=== PATIENT | female | born 1945 | race Caucasian/White ===

== ENCOUNTER 2022-05-02 15:29 | Inpatient (IN) | payer MEDICARE, OTHER ==
[~2022-05-02] VITALS: Ht 167.6 cm; Wt 79.8 kg
[2022-05-02 15:41] VITALS: BP_SYST 145
[2022-05-02] MEDS ORDERED: ACETAMINOPHEN 325 MG TABLET PO ONE (16:00)
[2022-05-02] MEDS ORDERED: NACL 0.9% 1,000 ML IV ONE (16:00)
[2022-05-02] MEDS ORDERED: CLOP75TA32 PO (16:24)
[2022-05-02] MEDS ORDERED: METF-379 PO (16:24)
[2022-05-02] MEDS ORDERED: ATOR20TA64 PO (16:24)
[2022-05-02] MEDS ORDERED: LEVE100S (16:24)
[2022-05-02] MEDS ORDERED: DULO60CA65 PO (16:24)
[2022-05-02] MEDS ORDERED: DULO30CA52 PO (16:24)
[2022-05-02] MEDS ORDERED: ASPI-989 PO (16:24)
[2022-05-02] MEDS ORDERED: AMLO10TA88 PO (16:24)
[2022-05-02] MEDS ORDERED: SSNOVOLOG SUBCUT (16:24)
[2022-05-02] MEDS ORDERED: LOSA50TA28 PO (16:25)
[2022-05-02 16:33] LABS: BASOPHILS % (AUTO) 0.6 % (0.0-2.0); HEMATOCRIT 39.3 % (36-48); HEMOGLOBIN 13.1 g/dL (12.0-16.0); LYMPHOCYTES # (AUTO) 0.4 K/uL (1.0-5.5); LYMPHOCYTES % (AUTO) 7.1 % (20.5-51.5); MEAN CORPUSCULAR HEMOGLOBIN 28 pg (27-31); MEAN CORPUSCULAR HGB CONC 33 % (32-36); MEAN CORPUSCULAR VOLUME 84 fL (79.0-98.0); MONOCYTES # (AUTO) 0.6 K/uL (0.0-1.0); MONOCYTES % (AUTO) 9.5 % (1.7-9.3); NEUTROPHILS % (AUTO) 82.8 % (40.0-70.0); PLATELET COUNT (AUTO) 245 K/uL (130-430); RED BLOOD CELL COUNT(AUTO) 4.66 MIL/uL (4.2-6.2); WHITE BLOOD COUNT (AUTO) 6.1 K/uL (4.8-10.8)
[2022-05-02 16:45] LABS: PROTHROMBIN TIME 10.6 SECS (9.5-12.5)
[2022-05-02 16:56] LABS: ANION GAP 11 (5-15); CALCIUM 8.9 mg/dL (8.4-11.0); CHLORIDE 100 mmol/L (98-107); CREATININE 0.84 mg/dL (0.55-1.30); GLUCOSE 135 mg/dL (70-99); UREA NITROGEN, BLOOD 10 mg/dL (8-21)
[2022-05-02 17:03] LABS: ALANINE AMINOTRANSFERASE 29 U/L (12-78); ALBUMIN 3.1 g/dL (3.4-4.8); ASPARTATE AMINOTRANSFERASE 19 U/L (10-37); TOTAL BILIRUBIN 0.4 mg/dL (0.0-1.0)
[2022-05-02 17:06] LABS: BILIRUBIN,URINE NEGATIVE (NEGATIVE); BLOOD, URINE 1+ (NEGATIVE); CLARITY/URINE CLOUDY (CLEAR); COLOR,URINE YELLOW (YELLOW); GLUCOSE,URINE NEGATIVE (NEGATIVE); KETONES,URINE NEGATIVE (NEGATIVE); LEUKOCYTE ESTERASE ,URINE 3+ (NEGATIVE); NITRITE, URINE POSITIVE (NEGATIVE); PROTEIN URINE 1+ (NEGATIVE); UROBILINOGEN,URINE 0.2 (0.2-1.0)
[2022-05-02 17:16] LABS: BACTERIA,URINE MANY /HPF (None Seen); MUCUS,URINE 3+ /LPF (None Seen); RBC,URINE 0-3 /HPF (0-3); WBC,URINE 50-80 /HPF (0-3)
[2022-05-02] MEDS ORDERED: DEXAMETHASONE SOD PHOSPHATE 10 MG/ML VIAL IVP ONE (18:00)
[2022-05-02] MEDS ORDERED: cefTRIAXone 1 GM in D5W 50 ML IV ONE (18:00)
[2022-05-02] MEDS ORDERED: cefTRIAXone 1 GM VIAL ONE (18:58)
[2022-05-02 22:49] VITALS: BP_SYST 127
[2022-05-03 01:38] VITALS: BP_SYST 116
[2022-05-03 08:00] VITALS: BP_SYST 119
[2022-05-03] MEDS ORDERED: HYDROcodone/ACETAMIN 10-325 MG TAB PO PRN (08:30)
[2022-05-03] MEDS ORDERED: INSULIN REGULAR, HUMAN 10 UNITS/0.1 ML, 3 ML VIAL SUBCUT PRN (08:30)
[2022-05-03] MEDS ORDERED: NALOXONE HCL 0.4 MG/ML AMP (NARCAN) IVP PRN (08:30)
[2022-05-03] MEDS ORDERED: ACETAMINOPHEN 325 MG TABLET PO PRN (08:30)
[2022-05-03] MEDS ORDERED: HYDROcodone/ACETAMIN 5-325 MG TAB (NORCO/ VICODIN) PO PRN (08:30)
[2022-05-03] MEDS ORDERED: D5W 1,000 ML IV PRN (09:15)
[2022-05-03] MEDS ORDERED: DEXTROSE 50% JECT 50 ML DISP.SYRIN IVP PRN (09:15)
[2022-05-03] MEDS ORDERED: GLUCOSE (DEXTROSE) ORAL GEL -Adults PO PRN (09:15)
[2022-05-03 11:41] VITALS: BP_SYST 106
[2022-05-03] MEDS: DECADRON 4 MG TABLET PO SCH (14:20)
[2022-05-03] MEDS ORDERED: ONDANSETRON HCL 4 MG/2 ML VIAL IVP PRN (14:30)
[2022-05-03] MEDS ORDERED: LORazepam 2 MG/ML VIAL IVP PRN (14:30)
[2022-05-03] MEDS ORDERED: IPRATROPIUM BROM 0.5 MG/2.5 ML VIAL.NEB (ATROVENT) INH SCH (15:00)
[2022-05-03] MEDS ORDERED: ALBUTEROL SULFATE 0.083% 2.5 MG/3 ML VIAL.NEB INH SCH (15:00)
[2022-05-03] MEDS ORDERED: amLODIPine BESYLATE 10 MG TABLET PO ONE (15:00)
[2022-05-03] MEDS ORDERED: LOSARTAN POTASSIUM 50 MG TABLET (COZAAR) PO ONE (15:00)
[2022-05-03] MEDS ORDERED: CLOPIDOGREL BISULFATE 75 MG TABLET PO ONE (15:00)
[2022-05-03] MEDS: AZITHROMYCIN 500 MG in NS 250 ML IV SCH (16:00)
[2022-05-03 17:00] VITALS: BP_SYST 110
[2022-05-03] MEDS: cefTRIAXone 1 GM in D5W 50 ML IV SCH (17:39)
[2022-05-03] MEDS ORDERED: ALBUTEROL SULFATE 0.083% 2.5 MG/3 ML VIAL.NEB INH PRN (19:00)
[2022-05-03] MEDS ORDERED: IPRATROPIUM BROM 0.5 MG/2.5 ML VIAL.NEB (ATROVENT) INH PRN (19:00)
[2022-05-03 20:00] VITALS: BP_SYST 123
[2022-05-03] MEDS ORDERED: COMMUNICATION ORDER XX ONE (20:45)
[2022-05-03] MEDS: metFORMIN HCL 500 MG TABLET PO SCH (21:01)
[2022-05-03] MEDS: ATORVASTATIN 20 MG TABLET PO SCH (21:01)
[2022-05-03] MEDS: NORMAL SALINE 5 ML DISP.SYRIN IVF SCH (21:06)
[2022-05-03] MEDS: INSULIN REGULAR, HUMAN 100 UNITS/ML, 3 ML VIAL (humuLIN R) SUBCUT PRN (21:18)
[2022-05-03] MEDS: ENOXAPARIN SODIUM 80 MG/0.8 ML SYRINGE SUBCUT SCH (21:19)
[2022-05-03] MEDS ORDERED: NORMAL SALINE 5 ML DISP.SYRIN IVF SCH (22:00)
[2022-05-04] VITALS: BP_SYST 109
[2022-05-04] MEDS: ALBUTEROL MDI INHALATION 8 GM INH INH SCH ×6 (03:00→23:14)
[2022-05-04] MEDS: NORMAL SALINE 5 ML DISP.SYRIN IVF SCH ×3 (06:16→21:26)
[2022-05-04 07:53] VITALS: BP_SYST 137
[2022-05-04] MEDS: amLODIPine BESYLATE 10 MG TABLET PO SCH (08:57)
[2022-05-04] MEDS: CLOPIDOGREL BISULFATE 75 MG TABLET PO SCH (08:57)
[2022-05-04] MEDS: metFORMIN HCL 500 MG TABLET PO SCH ×2 (08:58→21:21)
[2022-05-04] MEDS: ASPIRIN 325 MG TABLET PO SCH (08:58)
[2022-05-04] MEDS: LOSARTAN POTASSIUM 50 MG TABLET (COZAAR) PO SCH (08:58)
[2022-05-04] MEDS: ENOXAPARIN SODIUM 80 MG/0.8 ML SYRINGE SUBCUT SCH ×2 (08:58→21:20)
[2022-05-04] MEDS ORDERED: ENOXAPARIN SODIUM 30 MG/0.3 ML SYRINGE SUBCUT SCH (09:00)
[2022-05-04 09:45] LABS: BASOPHILS % (AUTO) 0.3 % (0.0-2.0); HEMATOCRIT 42.2 % (36-48); HEMOGLOBIN 13.6 g/dL (12.0-16.0); LYMPHOCYTES # (AUTO) 1.2 K/uL (1.0-5.5); LYMPHOCYTES % (AUTO) 23.4 % (20.5-51.5); MEAN CORPUSCULAR HEMOGLOBIN 28 pg (27-31); MEAN CORPUSCULAR HGB CONC 32 % (32-36); MEAN CORPUSCULAR VOLUME 86 fL (79.0-98.0); MONOCYTES # (AUTO) 0.2 K/uL (0.0-1.0); MONOCYTES % (AUTO) 3.5 % (1.7-9.3); NEUTROPHILS # (AUTO) 3.7 K/uL (1.8-7.7); NEUTROPHILS % (AUTO) 72.8 % (40.0-70.0); PLATELET COUNT (AUTO) 258 K/uL (130-430); RED BLOOD CELL COUNT(AUTO) 4.89 MIL/uL (4.2-6.2)
[2022-05-04 10:15] LABS: ALANINE AMINOTRANSFERASE 33 U/L (12-78); ALBUMIN 3.1 g/dL (3.4-4.8); ANION GAP 10 (5-15); ASPARTATE AMINOTRANSFERASE 28 U/L (10-37); CALCIUM 8.8 mg/dL (8.4-11.0); CHLORIDE 104 mmol/L (98-107); CREATININE 0.74 mg/dL (0.55-1.30); GLUCOSE 143 mg/dL (70-99); PHOSPHORUS 3.3 mg/dL (2.7-4.5); TOTAL BILIRUBIN 0.2 mg/dL (0.0-1.0); UREA NITROGEN, BLOOD 12 mg/dL (8-21)
[2022-05-04] MEDS: DECADRON 4 MG TABLET PO SCH (12:38)
[2022-05-04 12:54] VITALS: BP_SYST 124
[2022-05-04] MEDS: cefTRIAXone 1 GM in D5W 50 ML IV SCH (14:20)
[2022-05-04] MEDS: AZITHROMYCIN 500 MG in NS 250 ML IV SCH (15:49)
[2022-05-04 16:34] VITALS: BP_SYST 127
[2022-05-04] MEDS ORDERED: POTASSIUM CHLORIDE 20 MEQ TAB.PRT.SR PO ONE (17:00)
[2022-05-04 20:00] VITALS: BP_SYST 105
[2022-05-04] MEDS: ATORVASTATIN 20 MG TABLET PO SCH (21:21)
[2022-05-04] MEDS: INSULIN REGULAR, HUMAN 100 UNITS/ML, 3 ML VIAL (humuLIN R) SUBCUT PRN (22:26)
[2022-05-05 00:29] VITALS: BP_SYST 111
[2022-05-05] MEDS: ALBUTEROL MDI INHALATION 8 GM INH INH SCH ×6 (03:11→22:47)
[2022-05-05] MEDS: NORMAL SALINE 5 ML DISP.SYRIN IVF SCH ×3 (06:23→21:35)
[2022-05-05 07:58] LABS: BASOPHILS % (AUTO) 0.2 % (0.0-2.0); HEMATOCRIT 41.1 % (36-48); HEMOGLOBIN 13.5 g/dL (12.0-16.0); LYMPHOCYTES # (AUTO) 1.2 K/uL (1.0-5.5); LYMPHOCYTES % (AUTO) 27.7 % (20.5-51.5); MEAN CORPUSCULAR HEMOGLOBIN 28 pg (27-31); MEAN CORPUSCULAR HGB CONC 33 % (32-36); MEAN CORPUSCULAR VOLUME 85 fL (79.0-98.0); MONOCYTES # (AUTO) 0.5 K/uL (0.0-1.0); NEUTROPHILS # (AUTO) 2.6 K/uL (1.8-7.7); NEUTROPHILS % (AUTO) 61.1 % (40.0-70.0); PLATELET COUNT (AUTO) 250 K/uL (130-430); RED BLOOD CELL COUNT(AUTO) 4.87 MIL/uL (4.2-6.2); RED CELL DISTRIBUTION WIDTH 14.9 % (9.0-15.0); WHITE BLOOD COUNT (AUTO) 4.3 K/uL (4.8-10.8)
[2022-05-05 08:05] VITALS: BP_SYST 135
[2022-05-05 08:13] LABS: ANION GAP 10 (5-15); C-REACTIVE PROTEIN QUANT 1.6 mg/dL (0-0.5); CALCIUM 8.8 mg/dL (8.4-11.0); CHLORIDE 106 mmol/L (98-107); CREATININE 0.86 mg/dL (0.55-1.30); GLUCOSE 106 mg/dL (70-99); UREA NITROGEN, BLOOD 14 mg/dL (8-21)
[2022-05-05] MEDS: LOSARTAN POTASSIUM 50 MG TABLET (COZAAR) PO SCH (09:12)
[2022-05-05] MEDS: metFORMIN HCL 500 MG TABLET PO SCH ×2 (09:12→20:21)
[2022-05-05] MEDS: ASPIRIN 325 MG TABLET PO SCH (09:12)
[2022-05-05] MEDS: amLODIPine BESYLATE 10 MG TABLET PO SCH (09:13)
[2022-05-05] MEDS: CLOPIDOGREL BISULFATE 75 MG TABLET PO SCH (09:13)
[2022-05-05] MEDS: ENOXAPARIN SODIUM 80 MG/0.8 ML SYRINGE SUBCUT SCH (09:13)
[2022-05-05 10:43] LABS: ERYTHROCYTE SEDIMENTATION RATE 54 MM/HR (0-20)
[2022-05-05 11:56] VITALS: BP_SYST 125
[2022-05-05] MEDS: DECADRON 4 MG TABLET PO SCH (12:50)
[2022-05-05] MEDS: AZITHROMYCIN 500 MG in NS 250 ML IV SCH (12:51)
[2022-05-05 16:26] VITALS: BP_SYST 121
[2022-05-05] MEDS: INSULIN REGULAR, HUMAN 100 UNITS/ML, 3 ML VIAL (humuLIN R) SUBCUT PRN ×2 (17:18→21:35)
[2022-05-05] MEDS: cefTRIAXone 1 GM in D5W 50 ML IV SCH (18:00)
[2022-05-05 20:00] VITALS: BP_SYST 134
[2022-05-05] MEDS: ATORVASTATIN 20 MG TABLET PO SCH (20:21)
[2022-05-06 01:15] VITALS: BP_SYST 118
[2022-05-06] MEDS: ALBUTEROL MDI INHALATION 8 GM INH INH SCH ×3 (02:39→11:20)
[2022-05-06] MEDS: NORMAL SALINE 5 ML DISP.SYRIN IVF SCH ×3 (06:04→21:17)
[2022-05-06 06:10] VITALS: BP_SYST 118
[2022-05-06 06:59] LABS: BASOPHILS % (AUTO) 0.2 % (0.0-2.0); HEMATOCRIT 36.1 % (36-48); LYMPHOCYTES # (AUTO) 1.7 K/uL (1.0-5.5); LYMPHOCYTES % (AUTO) 36.3 % (20.5-51.5); MEAN CORPUSCULAR HEMOGLOBIN 28 pg (27-31); MEAN CORPUSCULAR HGB CONC 33 % (32-36); MEAN CORPUSCULAR VOLUME 85 fL (79.0-98.0); MONOCYTES # (AUTO) 0.5 K/uL (0.0-1.0); MONOCYTES % (AUTO) 10.6 % (1.7-9.3); NEUTROPHILS # (AUTO) 2.5 K/uL (1.8-7.7); NEUTROPHILS % (AUTO) 52.9 % (40.0-70.0); PLATELET COUNT (AUTO) 226 K/uL (130-430); RED BLOOD CELL COUNT(AUTO) 4.24 MIL/uL (4.2-6.2); RED CELL DISTRIBUTION WIDTH 14.8 % (9.0-15.0); WHITE BLOOD COUNT (AUTO) 4.7 K/uL (4.8-10.8)
[2022-05-06 08:00] VITALS: BP_SYST 121
[2022-05-06] MEDS: metFORMIN HCL 500 MG TABLET PO SCH ×2 (09:39→21:17)
[2022-05-06] MEDS: amLODIPine BESYLATE 10 MG TABLET PO SCH (09:40)
[2022-05-06] MEDS: LOSARTAN POTASSIUM 50 MG TABLET (COZAAR) PO SCH (09:40)
[2022-05-06] MEDS: DECADRON 4 MG TABLET PO SCH (12:05)
[2022-05-06 12:30] VITALS: BP_SYST 124
[2022-05-06] MEDS ORDERED: CLOPIDOGREL BISULFATE 75 MG TABLET PO ONE (12:45)
[2022-05-06] MEDS: ERTAPENEM SODIUM 1 GM in NS 50 ML IV SCH (13:44)
[2022-05-06] MEDS: INSULIN REGULAR, HUMAN 100 UNITS/ML, 3 ML VIAL (humuLIN R) SUBCUT PRN (18:20)
[2022-05-06 20:00] VITALS: BP_SYST 138
[2022-05-06] MEDS: ATORVASTATIN 20 MG TABLET PO SCH (21:16)
[2022-05-07] VITALS: BP_SYST 145
[2022-05-07] MEDS: ALBUTEROL MDI INHALATION 8 GM INH INH SCH ×5 (03:00→18:04)
[2022-05-07] MEDS: NORMAL SALINE 5 ML DISP.SYRIN IVF SCH ×3 (05:40→23:28)
[2022-05-07 08:00] VITALS: BP_SYST 124
[2022-05-07] MEDS: amLODIPine BESYLATE 10 MG TABLET PO SCH (09:31)
[2022-05-07] MEDS: CLOPIDOGREL BISULFATE 75 MG TABLET PO SCH (09:32)
[2022-05-07] MEDS: LOSARTAN POTASSIUM 50 MG TABLET (COZAAR) PO SCH (09:34)
[2022-05-07] MEDS: metFORMIN HCL 500 MG TABLET PO SCH ×2 (09:34→21:57)
[2022-05-07] MEDS ORDERED: ERTA1VIA IJ (11:29)
[2022-05-07 11:50] VITALS: BP_SYST 112
[2022-05-07] MEDS: ERTAPENEM SODIUM 1 GM in NS 50 ML IV SCH (12:32)
[2022-05-07] MEDS: DECADRON 4 MG TABLET PO SCH (12:32)
[2022-05-07 14:26] VITALS: BP_SYST 123
[2022-05-07 16:26] VITALS: BP_SYST 123
[2022-05-07 21:00] VITALS: BP_SYST 122
[2022-05-07] MEDS: INSULIN REGULAR, HUMAN 100 UNITS/ML, 3 ML VIAL (humuLIN R) SUBCUT PRN (21:56)
[2022-05-07] MEDS: ATORVASTATIN 20 MG TABLET PO SCH (21:57)
[2022-05-08] VITALS: BP_SYST 121
[2022-05-08] MEDS: ALBUTEROL MDI INHALATION 8 GM INH INH SCH ×7 (00:13→23:00)
[2022-05-08] MEDS: NORMAL SALINE 5 ML DISP.SYRIN IVF SCH ×3 (05:33→22:05)
[2022-05-08 06:54] LABS: BASOPHILS % (AUTO) 0.1 % (0.0-2.0); EOSINOPHILS % (AUTO) 0.2 % (0.0-4.0); HEMATOCRIT 38.2 % (36-48); HEMOGLOBIN 12.9 g/dL (12.0-16.0); LYMPHOCYTES # (AUTO) 1.7 K/uL (1.0-5.5); MEAN CORPUSCULAR HEMOGLOBIN 29 pg (27-31); MEAN CORPUSCULAR HGB CONC 34 % (32-36); MEAN CORPUSCULAR VOLUME 85 fL (79.0-98.0); MONOCYTES # (AUTO) 0.6 K/uL (0.0-1.0); MONOCYTES % (AUTO) 7.3 % (1.7-9.3); NEUTROPHILS # (AUTO) 5.9 K/uL (1.8-7.7); NEUTROPHILS % (AUTO) 71.4 % (40.0-70.0); PLATELET COUNT (AUTO) 253 K/uL (130-430); RED BLOOD CELL COUNT(AUTO) 4.52 MIL/uL (4.2-6.2); RED CELL DISTRIBUTION WIDTH 14.8 % (9.0-15.0); WHITE BLOOD COUNT (AUTO) 8.3 K/uL (4.8-10.8)
[2022-05-08 07:54] LABS: ALANINE AMINOTRANSFERASE 55 U/L (12-78); ALBUMIN 3.1 g/dL (3.4-4.8); ANION GAP 13 (5-15); ASPARTATE AMINOTRANSFERASE 26 U/L (10-37); CALCIUM 8.9 mg/dL (8.4-11.0); CHLORIDE 102 mmol/L (98-107); CREATININE 0.83 mg/dL (0.55-1.30); GLUCOSE 123 mg/dL (70-99); TOTAL BILIRUBIN 0.3 mg/dL (0.0-1.0); UREA NITROGEN, BLOOD 20 mg/dL (8-21)
[2022-05-08 07:57] LABS: C-REACTIVE PROTEIN QUANT < 0.2 mg/dL (0-0.5)
[2022-05-08 08:39] LABS: ERYTHROCYTE SEDIMENTATION RATE 34 MM/HR (0-20)
[2022-05-08 09:00] VITALS: BP_SYST 129
[2022-05-08] MEDS: metFORMIN HCL 500 MG TABLET PO SCH ×2 (09:03→22:04)
[2022-05-08] MEDS: amLODIPine BESYLATE 10 MG TABLET PO SCH (09:03)
[2022-05-08] MEDS: CLOPIDOGREL BISULFATE 75 MG TABLET PO SCH (09:04)
[2022-05-08] MEDS: LOSARTAN POTASSIUM 50 MG TABLET (COZAAR) PO SCH (09:04)
[2022-05-08 11:54] VITALS: BP_SYST 130
[2022-05-08] MEDS: DECADRON 4 MG TABLET PO SCH (12:57)
[2022-05-08] MEDS: ERTAPENEM SODIUM 1 GM in NS 50 ML IV SCH (12:57)
[2022-05-08 17:35] VITALS: BP_SYST 132
[2022-05-08 20:30] VITALS: BP_SYST 126
[2022-05-08] MEDS: ATORVASTATIN 20 MG TABLET PO SCH (22:04)
[2022-05-08] MEDS: INSULIN REGULAR, HUMAN 100 UNITS/ML, 3 ML VIAL (humuLIN R) SUBCUT PRN (22:19)
[2022-05-09 00:20] VITALS: BP_SYST 120
[2022-05-09] MEDS: ALBUTEROL MDI INHALATION 8 GM INH INH SCH ×6 (03:00→23:43)
[2022-05-09] MEDS: NORMAL SALINE 5 ML DISP.SYRIN IVF SCH ×3 (07:07→22:15)
[2022-05-09 07:55] LABS: ANION GAP 12 (5-15); CALCIUM 8.7 mg/dL (8.4-11.0); CHLORIDE 102 mmol/L (98-107); GLUCOSE 109 mg/dL (70-99); UREA NITROGEN, BLOOD 18 mg/dL (8-21)
[2022-05-09 08:08] LABS: C-REACTIVE PROTEIN QUANT < 0.2 mg/dL (0-0.5)
[2022-05-09 08:18] VITALS: BP_SYST 120
[2022-05-09] MEDS: CLOPIDOGREL BISULFATE 75 MG TABLET PO SCH (09:25)
[2022-05-09] MEDS: metFORMIN HCL 500 MG TABLET PO SCH ×2 (09:25→22:15)
[2022-05-09] MEDS: amLODIPine BESYLATE 10 MG TABLET PO SCH (09:26)
[2022-05-09] MEDS: LOSARTAN POTASSIUM 50 MG TABLET (COZAAR) PO SCH (09:26)
[2022-05-09 10:12] LABS: BASOPHILS % (AUTO) 0.4 % (0.0-2.0); EOSINOPHILS % (AUTO) 0.3 % (0.0-4.0); HEMATOCRIT 40.2 % (36-48); HEMOGLOBIN 13.3 g/dL (12.0-16.0); LYMPHOCYTES # (AUTO) 2.3 K/uL (1.0-5.5); LYMPHOCYTES % (AUTO) 19.8 % (20.5-51.5); MEAN CORPUSCULAR HEMOGLOBIN 28 pg (27-31); MEAN CORPUSCULAR HGB CONC 33 % (32-36); MEAN CORPUSCULAR VOLUME 86 fL (79.0-98.0); MONOCYTES # (AUTO) 0.8 K/uL (0.0-1.0); MONOCYTES % (AUTO) 6.5 % (1.7-9.3); NEUTROPHILS # (AUTO) 8.4 K/uL (1.8-7.7); PLATELET COUNT (AUTO) 282 K/uL (130-430); WHITE BLOOD COUNT (AUTO) 11.5 K/uL (4.8-10.8)
[2022-05-09 10:16] LABS: ERYTHROCYTE SEDIMENTATION RATE 26 MM/HR (0-20)
[2022-05-09 12:00] VITALS: BP_SYST 118
[2022-05-09] MEDS: ERTAPENEM SODIUM 1 GM in NS 50 ML IV SCH (12:37)
[2022-05-09] MEDS: DECADRON 4 MG TABLET PO SCH (12:37)
[2022-05-09 16:00] VITALS: BP_SYST 120
[2022-05-09] MEDS: INSULIN REGULAR, HUMAN 100 UNITS/ML, 3 ML VIAL (humuLIN R) SUBCUT PRN (17:39)
[2022-05-09 20:00] VITALS: BP_SYST 112
[2022-05-09] MEDS: ATORVASTATIN 20 MG TABLET PO SCH (22:15)
[2022-05-10 01:59] VITALS: BP_SYST 116
[2022-05-10] MEDS: ALBUTEROL MDI INHALATION 8 GM INH INH SCH ×5 (03:41→23:00)
[2022-05-10] MEDS: NORMAL SALINE 5 ML DISP.SYRIN IVF SCH ×3 (05:41→21:25)
[2022-05-10 08:00] VITALS: BP_SYST 114
[2022-05-10 09:06] LABS: BASOPHILS % (AUTO) 0.1 % (0.0-2.0); EOSINOPHILS % (AUTO) 0.1 % (0.0-4.0); HEMATOCRIT 44.8 % (36-48); HEMOGLOBIN 14.8 g/dL (12.0-16.0); LYMPHOCYTES # (AUTO) 2.4 K/uL (1.0-5.5); LYMPHOCYTES % (AUTO) 19.8 % (20.5-51.5); MEAN CORPUSCULAR HEMOGLOBIN 29 pg (27-31); MEAN CORPUSCULAR HGB CONC 33 % (32-36); MEAN CORPUSCULAR VOLUME 86 fL (79.0-98.0); MONOCYTES # (AUTO) 0.7 K/uL (0.0-1.0); MONOCYTES % (AUTO) 5.8 % (1.7-9.3); NEUTROPHILS % (AUTO) 74.2 % (40.0-70.0); PLATELET COUNT (AUTO) 298 K/uL (130-430); WHITE BLOOD COUNT (AUTO) 12.1 K/uL (4.8-10.8)
[2022-05-10 09:07] LABS: ERYTHROCYTE SEDIMENTATION RATE 32 MM/HR (0-20)
[2022-05-10 09:10] LABS: ANION GAP 12 (5-15); CHLORIDE 101 mmol/L (98-107); CREATININE 0.81 mg/dL (0.55-1.30); GLUCOSE 103 mg/dL (70-99); UREA NITROGEN, BLOOD 20 mg/dL (8-21)
[2022-05-10 09:11] LABS: C-REACTIVE PROTEIN QUANT < 0.2 mg/dL (0-0.5)
[2022-05-10] MEDS: amLODIPine BESYLATE 10 MG TABLET PO SCH (09:51)
[2022-05-10] MEDS: metFORMIN HCL 500 MG TABLET PO SCH ×2 (09:52→21:24)
[2022-05-10] MEDS: LOSARTAN POTASSIUM 50 MG TABLET (COZAAR) PO SCH (09:53)
[2022-05-10] MEDS: CLOPIDOGREL BISULFATE 75 MG TABLET PO SCH (09:53)
[2022-05-10 12:00] VITALS: BP_SYST 120
[2022-05-10] MEDS: DECADRON 4 MG TABLET PO SCH (12:10)
[2022-05-10] MEDS: ERTAPENEM SODIUM 1 GM in NS 50 ML IV SCH (12:24)
[2022-05-10 16:00] VITALS: BP_SYST 121
[2022-05-10] MEDS: INSULIN REGULAR, HUMAN 100 UNITS/ML, 3 ML VIAL (humuLIN R) SUBCUT PRN ×2 (17:04→21:34)
[2022-05-10 20:00] VITALS: BP_SYST 124
[2022-05-10] MEDS: ATORVASTATIN 20 MG TABLET PO SCH (21:24)
[2022-05-11 02:44] VITALS: BP_SYST 116
[2022-05-11] MEDS: ALBUTEROL MDI INHALATION 8 GM INH INH SCH ×8 (05:29→23:19)
[2022-05-11] MEDS: NORMAL SALINE 5 ML DISP.SYRIN IVF SCH ×3 (06:13→21:20)
[2022-05-11 06:38] LABS: BASOPHILS % (AUTO) 0.2 % (0.0-2.0); EOSINOPHILS % (AUTO) 0.2 % (0.0-4.0); HEMATOCRIT 41.5 % (36-48); HEMOGLOBIN 13.7 g/dL (12.0-16.0); LYMPHOCYTES # (AUTO) 2.7 K/uL (1.0-5.5); LYMPHOCYTES % (AUTO) 21.7 % (20.5-51.5); MEAN CORPUSCULAR HEMOGLOBIN 28 pg (27-31); MEAN CORPUSCULAR HGB CONC 33 % (32-36); MEAN CORPUSCULAR VOLUME 86 fL (79.0-98.0); MONOCYTES % (AUTO) 7.9 % (1.7-9.3); NEUTROPHILS # (AUTO) 8.7 K/uL (1.8-7.7); PLATELET COUNT (AUTO) 322 K/uL (130-430); RED BLOOD CELL COUNT(AUTO) 4.84 MIL/uL (4.2-6.2); RED CELL DISTRIBUTION WIDTH 14.7 % (9.0-15.0); WHITE BLOOD COUNT (AUTO) 12.5 K/uL (4.8-10.8)
[2022-05-11 07:10] LABS: ALANINE AMINOTRANSFERASE 69 U/L (12-78); ALBUMIN 3.5 g/dL (3.4-4.8); ANION GAP 11 (5-15); ASPARTATE AMINOTRANSFERASE 24 U/L (10-37); CALCIUM 9.1 mg/dL (8.4-11.0); CHLORIDE 100 mmol/L (98-107); CREATININE 0.82 mg/dL (0.55-1.30); GLUCOSE 95 mg/dL (70-99); TOTAL BILIRUBIN 0.4 mg/dL (0.0-1.0); UREA NITROGEN, BLOOD 20 mg/dL (8-21)
[2022-05-11 07:12] LABS: C-REACTIVE PROTEIN QUANT < 0.2 mg/dL (0-0.5)
[2022-05-11 08:37] LABS: ERYTHROCYTE SEDIMENTATION RATE 48 MM/HR (0-20)
[2022-05-11 09:04] VITALS: BP_SYST 126
[2022-05-11] MEDS: amLODIPine BESYLATE 10 MG TABLET PO SCH (09:08)
[2022-05-11] MEDS: metFORMIN HCL 500 MG TABLET PO SCH ×2 (09:09→21:20)
[2022-05-11] MEDS: CLOPIDOGREL BISULFATE 75 MG TABLET PO SCH (09:09)
[2022-05-11] MEDS: LOSARTAN POTASSIUM 50 MG TABLET (COZAAR) PO SCH (09:09)
[2022-05-11 11:25] VITALS: BP_SYST 114
[2022-05-11] MEDS: DECADRON 4 MG TABLET PO SCH (13:12)
[2022-05-11] MEDS: ERTAPENEM SODIUM 1 GM in NS 50 ML IV SCH (13:12)
[2022-05-11 16:05] VITALS: BP_SYST 107
[2022-05-11] MEDS: INSULIN REGULAR, HUMAN 100 UNITS/ML, 3 ML VIAL (humuLIN R) SUBCUT PRN ×2 (17:29→21:25)
[2022-05-11 20:00] VITALS: BP_SYST 127
[2022-05-11] MEDS: ATORVASTATIN 20 MG TABLET PO SCH (21:20)
[2022-05-12 00:16] VITALS: BP_SYST 116
[2022-05-12] MEDS: ALBUTEROL MDI INHALATION 8 GM INH INH SCH ×6 (03:00→23:00)
[2022-05-12] MEDS: NORMAL SALINE 5 ML DISP.SYRIN IVF SCH ×3 (06:01→21:13)
[2022-05-12 08:00] VITALS: BP_SYST 113
[2022-05-12] MEDS: LOSARTAN POTASSIUM 50 MG TABLET (COZAAR) PO SCH (08:23)
[2022-05-12] MEDS: metFORMIN HCL 500 MG TABLET PO SCH ×2 (08:23→21:13)
[2022-05-12] MEDS: CLOPIDOGREL BISULFATE 75 MG TABLET PO SCH (08:24)
[2022-05-12] MEDS: amLODIPine BESYLATE 10 MG TABLET PO SCH (08:24)
[2022-05-12 11:35] VITALS: BP_SYST 121
[2022-05-12] MEDS: DECADRON 4 MG TABLET PO SCH (12:10)
[2022-05-12 16:30] VITALS: BP_SYST 125
[2022-05-12 20:00] VITALS: BP_SYST 118
[2022-05-12] MEDS: ATORVASTATIN 20 MG TABLET PO SCH (21:13)
[2022-05-12] MEDS: INSULIN REGULAR, HUMAN 100 UNITS/ML, 3 ML VIAL (humuLIN R) SUBCUT PRN (21:18)
[2022-05-13 02:24] VITALS: BP_SYST 117
[2022-05-13] MEDS: ALBUTEROL MDI INHALATION 8 GM INH INH SCH ×5 (03:00→23:00)
[2022-05-13] MEDS: NORMAL SALINE 5 ML DISP.SYRIN IVF SCH ×3 (06:06→22:17)
[2022-05-13 08:00] VITALS: BP_SYST 117
[2022-05-13] MEDS: metFORMIN HCL 500 MG TABLET PO SCH ×2 (08:26→20:34)
[2022-05-13] MEDS: amLODIPine BESYLATE 10 MG TABLET PO SCH (08:27)
[2022-05-13] MEDS: CLOPIDOGREL BISULFATE 75 MG TABLET PO SCH (08:27)
[2022-05-13] MEDS: LOSARTAN POTASSIUM 50 MG TABLET (COZAAR) PO SCH (08:27)
[2022-05-13 12:00] VITALS: BP_SYST 121
[2022-05-13] MEDS: DECADRON 4 MG TABLET PO SCH (12:20)
[2022-05-13 16:00] VITALS: BP_SYST 119
[2022-05-13 20:00] VITALS: BP_SYST 126
[2022-05-13] MEDS: ATORVASTATIN 20 MG TABLET PO SCH (20:33)
[2022-05-13] MEDS: INSULIN REGULAR, HUMAN 100 UNITS/ML, 3 ML VIAL (humuLIN R) SUBCUT PRN (20:44)
[2022-05-14] VITALS: BP_SYST 110
[2022-05-14 04:00] VITALS: BP_SYST 115
[2022-05-14] MEDS: NORMAL SALINE 5 ML DISP.SYRIN IVF SCH ×3 (05:01→22:00)
[2022-05-14 06:23] LABS: BASOPHILS % (AUTO) 0.2 % (0.0-2.0); HEMATOCRIT 39.4 % (36-48); HEMOGLOBIN 13.4 g/dL (12.0-16.0); LYMPHOCYTES # (AUTO) 2.2 K/uL (1.0-5.5); LYMPHOCYTES % (AUTO) 17.9 % (20.5-51.5); MEAN CORPUSCULAR HEMOGLOBIN 29 pg (27-31); MEAN CORPUSCULAR HGB CONC 34 % (32-36); MEAN CORPUSCULAR VOLUME 84 fL (79.0-98.0); MONOCYTES # (AUTO) 0.9 K/uL (0.0-1.0); MONOCYTES % (AUTO) 6.9 % (1.7-9.3); NEUTROPHILS # (AUTO) 9.4 K/uL (1.8-7.7); PLATELET COUNT (AUTO) 276 K/uL (130-430); RED BLOOD CELL COUNT(AUTO) 4.67 MIL/uL (4.2-6.2); RED CELL DISTRIBUTION WIDTH 15.5 % (9.0-15.0); WHITE BLOOD COUNT (AUTO) 12.5 K/uL (4.8-10.8)
[2022-05-14 06:41] LABS: ANION GAP 10 (5-15); CALCIUM 8.7 mg/dL (8.4-11.0); CHLORIDE 100 mmol/L (98-107); CREATININE 0.73 mg/dL (0.55-1.30); GLUCOSE 119 mg/dL (70-99); UREA NITROGEN, BLOOD 25 mg/dL (8-21)
[2022-05-14] MEDS: ALBUTEROL MDI INHALATION 8 GM INH INH SCH ×5 (07:13→23:00)
[2022-05-14 08:00] VITALS: BP_SYST 118
[2022-05-14] MEDS: metFORMIN HCL 500 MG TABLET PO SCH ×2 (08:42→21:55)
[2022-05-14] MEDS: CLOPIDOGREL BISULFATE 75 MG TABLET PO SCH (08:42)
[2022-05-14] MEDS: LOSARTAN POTASSIUM 50 MG TABLET (COZAAR) PO SCH (08:43)
[2022-05-14] MEDS: amLODIPine BESYLATE 10 MG TABLET PO SCH (08:43)
[2022-05-14 11:50] VITALS: BP_SYST 109
[2022-05-14 15:40] VITALS: BP_SYST 108
[2022-05-14 20:00] VITALS: BP_SYST 112
[2022-05-14] MEDS: ATORVASTATIN 20 MG TABLET PO SCH (21:55)
[2022-05-15] VITALS: BP_SYST 108
[2022-05-15] MEDS: ALBUTEROL MDI INHALATION 8 GM INH INH SCH ×6 (03:00→23:00)
[2022-05-15] MEDS: NORMAL SALINE 5 ML DISP.SYRIN IVF SCH ×3 (06:00→22:37)
[2022-05-15 08:00] VITALS: BP_SYST 119
[2022-05-15] MEDS: amLODIPine BESYLATE 10 MG TABLET PO SCH (09:09)
[2022-05-15] MEDS: LOSARTAN POTASSIUM 50 MG TABLET (COZAAR) PO SCH (09:10)
[2022-05-15] MEDS: CLOPIDOGREL BISULFATE 75 MG TABLET PO SCH (09:10)
[2022-05-15] MEDS: metFORMIN HCL 500 MG TABLET PO SCH ×2 (09:11→22:33)
[2022-05-15 10:41] LABS: BASOPHILS % (AUTO) 0.3 % (0.0-2.0); EOSINOPHILS # (AUTO) 0.1 K/uL (0.0-0.4); EOSINOPHILS % (AUTO) 0.8 % (0.0-4.0); HEMATOCRIT 42.3 % (36-48); LYMPHOCYTES # (AUTO) 2.2 K/uL (1.0-5.5); MEAN CORPUSCULAR HEMOGLOBIN 28 pg (27-31); MEAN CORPUSCULAR HGB CONC 33 % (32-36); MEAN CORPUSCULAR VOLUME 86 fL (79.0-98.0); MONOCYTES # (AUTO) 0.7 K/uL (0.0-1.0); MONOCYTES % (AUTO) 5.8 % (1.7-9.3); NEUTROPHILS # (AUTO) 9.8 K/uL (1.8-7.7); NEUTROPHILS % (AUTO) 76.1 % (40.0-70.0); PLATELET COUNT (AUTO) 270 K/uL (130-430); RED BLOOD CELL COUNT(AUTO) 4.94 MIL/uL (4.2-6.2); RED CELL DISTRIBUTION WIDTH 15.7 % (9.0-15.0); WHITE BLOOD COUNT (AUTO) 12.9 K/uL (4.8-10.8)
[2022-05-15 11:09] LABS: ANION GAP 10 (5-15); CHLORIDE 102 mmol/L (98-107); CREATININE 0.71 mg/dL (0.55-1.30); GLUCOSE 89 mg/dL (70-99); UREA NITROGEN, BLOOD 28 mg/dL (8-21)
[2022-05-15 12:05] VITALS: BP_SYST 109
[2022-05-15 16:05] VITALS: BP_SYST 92
[2022-05-15] MEDS ORDERED: METHYLPREDNISOLONE SOD SUCC 40 MG/ML VIAL IVP ONE (16:15)
[2022-05-15] MEDS ORDERED: IPRATROPIUM/ALBUTEROL SULFATE 3 ML AMPUL.NEB (DUONEB) INH PRN (16:15)
[2022-05-15 20:00] VITALS: BP_SYST 109
[2022-05-15] MEDS ORDERED: BUDESONIDE 0.5 MG/2 ML AMPUL.NEB INH SCH (21:00)
[2022-05-15] MEDS ORDERED: METHYLPREDNISOLONE SOD SUCC 40 MG/ML VIAL IVP SCH (21:00)
[2022-05-15] MEDS: ATORVASTATIN 20 MG TABLET PO SCH (22:36)
[2022-05-15] MEDS: INSULIN REGULAR, HUMAN 100 UNITS/ML, 3 ML VIAL (humuLIN R) SUBCUT PRN (22:43)
[2022-05-16 02:16] VITALS: BP_SYST 101
[2022-05-16] MEDS: ALBUTEROL MDI INHALATION 8 GM INH INH SCH ×6 (03:00→23:00)
[2022-05-16] MEDS: NORMAL SALINE 5 ML DISP.SYRIN IVF SCH ×3 (06:00→21:55)
[2022-05-16 08:00] VITALS: BP_SYST 129
[2022-05-16] MEDS: amLODIPine BESYLATE 10 MG TABLET PO SCH (10:23)
[2022-05-16] MEDS: CLOPIDOGREL BISULFATE 75 MG TABLET PO SCH (10:24)
[2022-05-16] MEDS: LOSARTAN POTASSIUM 50 MG TABLET (COZAAR) PO SCH (10:24)
[2022-05-16] MEDS: metFORMIN HCL 500 MG TABLET PO SCH ×2 (10:24→21:31)
[2022-05-16 12:00] VITALS: BP_SYST 116
[2022-05-16 16:00] VITALS: BP_SYST 116
[2022-05-16 20:00] VITALS: BP_SYST 112
[2022-05-16] MEDS: ATORVASTATIN 20 MG TABLET PO SCH (21:31)
[2022-05-17] VITALS: BP_SYST 114
[2022-05-17] MEDS: ALBUTEROL MDI INHALATION 8 GM INH INH SCH ×6 (03:00→23:35)
[2022-05-17] MEDS: NORMAL SALINE 5 ML DISP.SYRIN IVF SCH ×3 (05:06→22:00)
[2022-05-17] MEDS: amLODIPine BESYLATE 10 MG TABLET PO SCH (10:20)
[2022-05-17] MEDS: CLOPIDOGREL BISULFATE 75 MG TABLET PO SCH (10:21)
[2022-05-17] MEDS: LOSARTAN POTASSIUM 50 MG TABLET (COZAAR) PO SCH (10:21)
[2022-05-17] MEDS: metFORMIN HCL 500 MG TABLET PO SCH ×2 (10:21→21:37)
[2022-05-17 12:00] VITALS: BP_SYST 110
[2022-05-17 16:00] VITALS: BP_SYST 112
[2022-05-17 20:00] VITALS: BP_SYST 125
[2022-05-17] MEDS: ATORVASTATIN 20 MG TABLET PO SCH (21:37)
[2022-05-18] VITALS: BP_SYST 120
[2022-05-18] MEDS: ALBUTEROL MDI INHALATION 8 GM INH INH SCH ×4 (03:00→15:00)
[2022-05-18] MEDS: NORMAL SALINE 5 ML DISP.SYRIN IVF SCH ×3 (05:25→22:00)
[2022-05-18 07:39] LABS: BASOPHILS # (AUTO) 0.1 K/uL (0.0-0.2); BASOPHILS % (AUTO) 0.8 % (0.0-2.0); EOSINOPHILS # (AUTO) 0.2 K/uL (0.0-0.4); EOSINOPHILS % (AUTO) 2.5 % (0.0-4.0); HEMATOCRIT 43.3 % (36-48); HEMOGLOBIN 14.1 g/dL (12.0-16.0); LYMPHOCYTES # (AUTO) 2.1 K/uL (1.0-5.5); LYMPHOCYTES % (AUTO) 22.7 % (20.5-51.5); MEAN CORPUSCULAR HEMOGLOBIN 28 pg (27-31); MEAN CORPUSCULAR HGB CONC 33 % (32-36); MEAN CORPUSCULAR VOLUME 87 fL (79.0-98.0); MONOCYTES # (AUTO) 0.5 K/uL (0.0-1.0); MONOCYTES % (AUTO) 5.7 % (1.7-9.3); NEUTROPHILS # (AUTO) 6.3 K/uL (1.8-7.7); NEUTROPHILS % (AUTO) 68.3 % (40.0-70.0); PLATELET COUNT (AUTO) 276 K/uL (130-430); RED BLOOD CELL COUNT(AUTO) 4.98 MIL/uL (4.2-6.2); RED CELL DISTRIBUTION WIDTH 16.1 % (9.0-15.0); WHITE BLOOD COUNT (AUTO) 9.3 K/uL (4.8-10.8)
[2022-05-18 07:46] LABS: ALANINE AMINOTRANSFERASE 64 U/L (12-78); ALBUMIN 2.9 g/dL (3.4-4.8); ANION GAP 10 (5-15); ASPARTATE AMINOTRANSFERASE 12 U/L (10-37); CALCIUM 9.1 mg/dL (8.4-11.0); CHLORIDE 104 mmol/L (98-107); CREATININE 0.86 mg/dL (0.55-1.30); GLUCOSE 113 mg/dL (70-99); TOTAL BILIRUBIN 0.5 mg/dL (0.0-1.0); UREA NITROGEN, BLOOD 22 mg/dL (8-21)
[2022-05-18 08:36] VITALS: BP_SYST 114
[2022-05-18] MEDS: CLOPIDOGREL BISULFATE 75 MG TABLET PO SCH (09:39)
[2022-05-18] MEDS: amLODIPine BESYLATE 10 MG TABLET PO SCH (09:39)
[2022-05-18] MEDS: metFORMIN HCL 500 MG TABLET PO SCH ×2 (09:39→20:54)
[2022-05-18] MEDS: LOSARTAN POTASSIUM 50 MG TABLET (COZAAR) PO SCH (09:40)
[2022-05-18 10:17] VITALS: BP_SYST 114
[2022-05-18 11:13] VITALS: BP_SYST 101
[2022-05-18 17:01] VITALS: BP_SYST 110
[2022-05-18 20:00] VITALS: BP_SYST 104
[2022-05-18] MEDS: INSULIN REGULAR, HUMAN 100 UNITS/ML, 3 ML VIAL (humuLIN R) SUBCUT PRN (20:53)
[2022-05-18] MEDS: ATORVASTATIN 20 MG TABLET PO SCH (20:54)
[2022-05-19] VITALS: BP_SYST 115
[2022-05-19] MEDS: ALBUTEROL MDI INHALATION 8 GM INH INH SCH ×6 (03:00→20:14)
[2022-05-19] MEDS: NORMAL SALINE 5 ML DISP.SYRIN IVF SCH ×2 (05:39→14:59)
[2022-05-19] MEDS: metFORMIN HCL 500 MG TABLET PO SCH (09:44)
[2022-05-19] MEDS: LOSARTAN POTASSIUM 50 MG TABLET (COZAAR) PO SCH (09:44)
[2022-05-19] MEDS: CLOPIDOGREL BISULFATE 75 MG TABLET PO SCH (09:45)
[2022-05-19] MEDS: amLODIPine BESYLATE 10 MG TABLET PO SCH (09:45)
[2022-05-19 12:01] VITALS: BP_SYST 106
[2022-05-19 18:42] VITALS: BP_SYST 106
[2022-05-19 20:45] VITALS: BP_SYST 109
== END 2022-05-19 20:45 | DRG 871 ==
LOC: SED 15:29 → STU 20:05 → SMU 05-05 23:25
PROVIDERS: ADMIT Internal Medicine; ATTEND Internal Medicine
PROC: XW033E5 Introduction of Remdesivir Anti-infective into Peripheral Vein, Percutaneous Approach, New Technology Group 5 (ICD-10-PCS; principal; 2022-05-03)
DX: A41.9 Sepsis, unspecified organism (principal); G92.9 Unspecified toxic encephalopathy; U07.1 COVID-19; J12.82 Pneumonia due to coronavirus disease 2019; J96.01 Acute respiratory failure with hypoxia; N39.0 Urinary tract infection, site not specified; E87.1 Hypo-osmolality and hyponatremia; Z16.12 Extended spectrum beta lactamase (ESBL) resistance; B96.4 Proteus (mirabilis) (morganii) as the cause of diseases classified elsewhere; B96.89 Other specified bacterial agents as the cause of diseases classified elsewhere; E11.65 Type 2 diabetes mellitus with hyperglycemia; E78.5 Hyperlipidemia, unspecified; E87.6 Hypokalemia; B96.20 Unspecified Escherichia coli [E. coli] as the cause of diseases classified elsewhere; E88.09 Other disorders of plasma-protein metabolism, not elsewhere classified; F32.A Depression, unspecified; R53.81 Other malaise; F03.90 Unspecified dementia, unspecified severity, without behavioral disturbance, psychotic disturbance, mood disturbance, and anxiety; I10 Essential (primary) hypertension; Z79.01 Long term (current) use of anticoagulants; Z79.82 Long term (current) use of aspirin; Z79.84 Long term (current) use of oral hypoglycemic drugs; Z79.899 Other long term (current) drug therapy
CPT/HCPCS: 36415; 70450-TC; 71045; 76376; 80048; 80053; 81000; 83605; 83735; 83880; 84100; 84484; 85025; 85379; 85610-TC; 85651-TC; 85730-TC; 86140; 87040; 87045-TC; 87046; 87081; 87086; 89055; 93005; 94640; 94664; 94760; 96365; 96375; 97110-GP; 97112-GP; 97116-GP; 97163-GP; 97530-GP; 99285; G0378; J0456; J0696; J1030; J1100; J1335; J1650; J1815; J7050; J7060; J8540